=== PATIENT | female | born 1975 | race Caucasian/White ===

== ENCOUNTER → 2017-08-28 | Outpatient (CLI) | payer BC ==
[~2017-08-28] VITALS: Ht 160 cm; Wt 62.3 kg
[~2017-08-28] MED LIST: BREO ELLIPTA1 POW IH; CALCIUM CARBON650 M2 PO; FERROUS SULFATE65 MG PO; FISH OIL1 IU PO; GOOD NEIGHBOR600 M1 PO; MAGONATE M54 MG/5 ML PO; MULTI-VITAMIN W1 TA1 PO; PROAIR HFA0.09 MG/AC IH; PROBIOTIC1 EAC1 PO; TURMERIC 500 M1 EACH PO
[2017-08-28 14:10] VITALS: BP 129/73
== END ==
LOC: AMSURD 13:54
DX: R00.0 Tachycardia, unspecified (principal); R53.81 Other malaise; R51 Headache

== ENCOUNTER → 2017-09-11 | Outpatient (CLI) | payer BC ==
[2017-08-28 14:10] VITALS: BP 129/73
== END ==
LOC: RAD 15:00 → VAS 15:37
DX: R00.0 Tachycardia, unspecified (principal)

== ENCOUNTER → 2018-09-21 | Outpatient (CLI) | payer BC ==
[2017-08-28 14:10] VITALS: BP 129/73
== END ==
LOC: RAD 16:06
DX: G43.909 Migraine, unspecified, not intractable, without status migrainosus (principal); R25.3 Fasciculation

== ENCOUNTER → 2020-05-26 | Outpatient (CLI) | payer BC ==
[2017-08-28 14:10] VITALS: BP 129/73
== END ==
LOC: MAMMO 08:09
DX: Z12.31 Encounter for screening mammogram for malignant neoplasm of breast (principal); N64.89 Other specified disorders of breast

== ENCOUNTER → 2020-06-04 | Outpatient (CLI) | payer BC ==
[2017-08-28 14:10] VITALS: BP 129/73
== END ==
LOC: RAD 13:49
DX: N63.10 Unspecified lump in the right breast, unspecified quadrant (principal); N64.89 Other specified disorders of breast

== ENCOUNTER → 2020-09-10 | Outpatient (CLI) | payer BC ==
[2017-08-28 14:10] VITALS: BP 129/73
== END ==
LOC: RAD 12:34
DX: N64.52 Nipple discharge (principal); N64.4 Mastodynia; N63.13 Unspecified lump in the right breast, lower outer quadrant

== ENCOUNTER → 2021-01-06 | Outpatient (REF) | LOC: LAB 17:03 | DX: Z01.812 Encounter for preprocedural laboratory examination (principal) ==

== ENCOUNTER 2021-10-13 12:53 | Emergency (ER) | payer OTHER ==
[2021-10-13 13:02] VITALS: BP 114/75
== END 2021-10-13 15:05 | disposition home or self-care (01) ==
LOC: ED 12:53
DX: S06.0X9A Concussion with loss of consciousness of unspecified duration, initial encounter (principal); M54.2 Cervicalgia; H53.149 Visual discomfort, unspecified; W22.8XXA Striking against or struck by other objects, initial encounter